=== PATIENT | female | born 1950 | race Caucasian/White ===

== ENCOUNTER 2024-03-11 20:15 | Emergency (ER) | payer OTHER, MEDICAID ==
[~2024-03-11] VITALS: Ht 165.1 cm; Wt 68.0 kg
[2024-03-11 20:22] VITALS: O2SAT 98
[2024-03-11] MEDS ORDERED: ONDANSETRON HCL 4MG/2ML INJ IV STA (20:38)
[2024-03-11 21:28] LABS: BASOPHILS % 0.5 % (0.0-2.0); EOSINOPHILS % 0.4 % (0.0-5.0); HEMOGLOBIN. 12.6 g/dL (12.0-16.0); LYMPHOCYTES % 8.3 % (20.0-50.0); MEAN CORPUSCULAR HEMOGLOBIN 27.7 pg (28.0-32.0); MEAN CORPUSCULAR HGB CONC 32.4 g/dL (31.0-37.0); MEAN CORPUSCULAR VOLUME 85.4 fL (81.0-99.0); MEAN PLATELET VOLUME 9.6 fl (7.4-10.4); MONOCYTES % 2.7 % (2.0-8.0); NEUTROPHILS % 88.1 % (40.0-76.0); PLATELET 245 x1000/uL (130-400); RED BLOOD CELL COUNT 4.57 mill/uL (4.2-5.4); WHITE BLOOD COUNT 15.5 x1000/uL (4.5-11.0)
[2024-03-11 21:31] LABS: CHLORIDE 101 mEq/L (98-107); POTASSIUM 4.2 mEq/L (3.5-5.1); SODIUM 135 mEq/L (136-145)
[2024-03-11 21:32] LABS: CARBON DIOXIDE 24 mEq/L (21-32)
[2024-03-11 21:33] LABS: CALCIUM 9.9 mg/dL (8.7-10.4)
[2024-03-11 21:37] LABS: GLUCOSE 227 mg/dL (70-105)
[2024-03-11 21:38] LABS: TROPONIN I HIGH SENSITIVITY 4 ng/L (3.0-34); UREA NITROGEN BLOOD 18 mg/dL (9-23)
[2024-03-11 21:39] LABS: ALANINE AMINOTRANSFERASE 24 IU/L (10-49); ALBUMIN 5.2 g/dL (3.2-4.8); ASPARTATE AMINOTRANSFERASE 29 IU/L (<34)
[2024-03-11 21:40] LABS: BILIRUBIN TOTAL 0.4 mg/dL (0.1-1.0); PROTEIN TOTAL 8.5 g/dL (6.0-8.3)
[2024-03-11] MEDS: SODIUM CHLORIDE 0.9% 1,000 ML IV ONE (21:40)
[2024-03-11 23:42] LABS: CLARITY URINE CLEAR (CLEAR); COLOR URINE DARK YELLOW (YELLOW); GLUCOSE URINE TRACE (NEGATIVE); KETONES URINE 1+ (NEGATIVE); LEUKOCYTE ESTERASE URINE NEGATIVE (NEGATIVE); NITRITE URINE NEGATIVE (NEGATIVE); OCCULT BLOOD URINE NEGATIVE (NEGATIVE); PROTEIN URINE NEGATIVE (NEGATIVE); SPECIFIC GRAVITY URINE 1.012 (1.005-1.030); UROBILINOGEN URINE 0.2 E.U./dL (0.2-1.0)
[2024-03-11 23:55] LABS: BACTERIA URINE 4+; RBC URINE 0-2 /hpf (0-2); SQUAMOUS EPITHELIAL CELL URINE FEW /lpf (RARE/1+); YEAST URINE NONE SEEN
[2024-03-12] MEDS ORDERED: ONDA4TAB50 MT (00:27)
[2024-03-12] MEDS ORDERED: NITR-87 MT (00:27)
[2024-03-12 01:35] VITALS: BP 167/68; PULSE 82; RESP 16; TEMP 98.4
== END 2024-03-12 01:55 | disposition home or self-care (01) ==
LOC: ER 20:15
DX: R11.2 Nausea with vomiting, unspecified (principal); R10.9 Unspecified abdominal pain; E11.9 Type 2 diabetes mellitus without complications; E78.00 Pure hypercholesterolemia, unspecified; I10 Essential (primary) hypertension
CPT/HCPCS: 99285; 74176; 96360; 71045; 96361; 80053; 81003; 85025; 84484; 36415; 93005; J7030